=== PATIENT | female | born 1980 | race American Indian/Alaskan Native ===

== ENCOUNTER 2021-06-14 10:44 | Emergency (ER) | payer SELFPAY ==
[2021-06-14 11:13] VITALS: BP 153/91
[2021-06-14] MEDS ORDERED: HYDROcodone/ACETAMINOPHEN 10-325MG TAB PO ONE (11:26)
--- NOTE | 2021-06-14 11:56 | Vascular Lab Report ---
VL venous duplex LE RT INDICATION / CLINICAL INFORMATION: right leg pain. TECHNIQUE: Duplex doppler imaging was performed using venous compression and other maneuvers. COMPARISON: None available. FINDINGS: No venous thrombosis is identified within the visualized extremity vasculature. ADDITIONAL FINDINGS: None. IMPRESSION: 1. No sonographic evidence for DVT in the visualized right lower extremity vasculature. Signer Name: Claude Hussein MD Signed: 06/14/2021 11:52 AM Workstation Name: [id number]
--- NOTE | 2021-06-14 12:04 | Emergency Department Report ---
ED Lower Extremity HPI - General Chief Complaint: Extremity Injury, Lower Stated Complaint: R FOOT/LEG PAIN Time Seen by Provider: 06/14/21 11:17 Source: patient Mode of arrival: Ambulatory Limitations: No Limitations - History of Present Illness Initial Comments: This is a 41-year-old female nontoxic, well nourished in appearance, no acute signs of distress presents to the ED with c/o of right calf pain 3 days. Patient denies any injuries or trauma. Patient denies any numbness, tingling, fever, chills, nausea, vomiting, chest pain, shortness of breath, headache, stiff neck. Patient denies any joint swelling or joint redness. Patient denies decreased range of motion or abnormal gait. Pain worse with palpation. Patient stated has allergies to sulfamethoxaole and trimethroprim. Denies taking oral contraceptives, recent travels or long car rides. Denies recent hospitalizations. MD Complaint: leg injury -: days(s) Injury: Leg: Right Severity: mild Severity scale (0 -10): 8 Improves With: rest Worsens With: palpation Associated Symptoms: ambulatory. denies: snap/pop sensation, swelling, numbness, tingling, unable to bear weight, able to partially bear weight - Related Data Previous Rx's Medication Instructions Recorded Last Taken Type Cyclobenzaprine [Flexeril] 10 mg PO QHS PRN #10 tablet 06/14/21 Unknown Rx Naproxen 500 mg PO Q12H PRN #12 tablet 06/14/21 Unknown Rx Allergies Allergy/AdvReac Type Severity Reaction Status Date / Time sulfamethoxazole Allergy Angioedema Verified 06/14/21 11:10 [From Bactrim] trimethoprim [From Bactrim] Allergy Angioedema Verified 06/14/21 11:10 ED Review of Systems ROS: Stated complaint: R FOOT/LEG PAIN Other details as noted in HPI Comment: All other systems reviewed and negative Constitutional: denies: chills, fever Eyes: denies: eye pain, eye discharge, vision change ENT: denies: ear pain, throat pain Respiratory: denies: cough, shortness of breath, wheezing Cardiovascular: denies: chest pain, palpitations Endocrine: no symptoms reported Gastrointestinal: denies: abdominal pain, nausea, diarrhea Genitourinary: denies: urgency, dysuria, discharge Musculoskeletal: denies: back pain, joint swelling, arthralgia Skin: denies: rash, lesions Neurological: denies: headache, weakness, paresthesias Psychiatric: denies: anxiety, depression Hematological/Lymphatic: denies: easy bleeding, easy bruising ED Past Medical Hx - Past Medical History Hx Asthma: Yes - Medications Home Medications: Home Medications Medication Instructions Recorded Confirmed Last Taken Type Cyclobenzaprine [Flexeril] 10 mg PO QHS PRN #10 tablet 06/14/21 Unknown Rx Naproxen 500 mg PO Q12H PRN #12 tablet 06/14/21 Unknown Rx ED Physical Exam - General Limitations: No Limitations General appearance: alert, in no apparent distress - Head Head exam: Present: atraumatic, normocephalic - Eye Eye exam: Present: normal appearance - Neck Neck exam: Present: normal inspection, full ROM. Absent: lymphadenopathy - Respiratory Respiratory exam: Absent: respiratory distress - Cardiovascular Cardiovascular Exam: Present: regular rate - Extremities Exam Extremities exam: Present: normal inspection, full ROM, tenderness, normal capillary refill, calf tenderness. Absent: pedal edema, joint swelling - Expanded Lower Extremity Exam Right Hip exam: Present: normal inspection, full ROM. Absent: tenderness, swelling Upper Leg exam: Present: normal inspection, full ROM. Absent: tenderness, swe lling Knee exam: Present: normal inspection, full ROM. Absent: tenderness, swelling Lower Leg exam: Present: normal inspection, full ROM, tenderness. Absent: swelling, abrasion, laceration, ecchymosis, deformity, crepidus, dislocation, erythema, palpable cord, Fermin's sign Ankle exam: Present: normal inspection, full ROM. Absent: tenderness, swelling Foot/Toe exam: Present: normal inspection, full ROM. Absent: tenderness, swelling Neuro vascular tendon exam: Present: no vascular compromise. Absent: pulse deficit, abnormal cap refill Gait: Positive: observed and normal 1 - Pain here - Back Exam Back exam: Present: normal inspection, full ROM. Absent: tenderness, CVA tenderness (R), CVA tenderness (L), muscle spasm, paraspinal tenderness, vertebral tenderness, rash noted - Neurological Exam Neurological exam: Present: alert, oriented X3, normal gait - Psychiatric Psychiatric exam: Present: normal affect, normal mood - Skin Skin exam: Present: warm, dry, intact, normal color. Absent: rash ED Course Vital Signs 06/14/21 11:11 Temperature 98.6 F Pulse Rate 98 H Respiratory 20 Rate Blood Pressure 153/91 [Right] O2 Sat by Pulse 100 Oximetry - Reevaluation(s) Reevaluation #1: 06/14/21 12:04 Patient is speaking in full sentences with no signs of distress noted. ED Lower Extremity MDM - Lab Data Result diagrams: 06/14/21 13:10 06/14/21 13:10 Lab Results 06/14/21 06/14/21 06/14/21 Range/Units 13:10 13:10 13:10 WBC 5.9 (4.5-11.0) K/mm3 RBC 4.77 (3.65-5.03) M/mm3 Hgb 10.1 (10.1-14.3) gm/dl Hct 31.0 (30.3-42.9) % MCV 65 L (79-97) fl MCH 21 L (28-32) pg MCHC 33 (30-34) % RDW 19.5 H (13.2-15.2) % Plt Count 285 (140-440) K/mm3 Lymph % (Auto) 25.9 (13.4-35.0) % Ceiba % (Auto) 10.5 H (0.0-7.3) % Eos % (Auto) 1.2 (0.0-4.3) % Baso % (Auto) 0.3 (0.0-1.8) % Lymph # (Auto) 1.5 (1.2-5.4) K/mm3 Ceiba # (Auto) 0.6 (0.0-0.8) K/mm3 Eos # (Auto) 0.1 (0.0-0.4) K/mm3 Baso # (Auto) 0.0 (0.0-0.1) K/mm3 Seg Neutrophils % 62.1 (40.0-70.0) % Seg Neutrophils # 3.7 (1.8-7.7) K/mm3 Sodium 140 (137-145) mmol/L Potassium 3.9 (3.6-5.0) mmol/L Chloride 104.8 (98-107) mmol/L Carbon Dioxide 22 (22-30) mmol/L Anion Gap 17 mmol/L BUN 8 (7-17) mg/dL Creatinine 0.6 (0.6-1.2) mg/dL Estimated GFR > 60 ml/min BUN/Creatinine Ratio 13 % Glucose 91 (65-100) mg/dL Calcium 8.6 (8.4-10.2) mg/dL Total Bilirubin 0.70 (0.1-1.2) mg/dL AST 11 (5-40) units/L ALT 6 L (7-56) units/L Alkaline Phosphatase 71 (35-129) units/L Total Creatine Kinase (30-135) units/L Total Protein 7.5 (6.3-8.2) g/dL Albumin 3.7 L (3.9-5) g/dL Albumin/Globulin Ratio 1.0 % HCG, Qual Negative (Negative) 06/14/21 Range/Units 13:10 WBC (4.5-11.0) K/mm3 RBC (3.65-5.03) M/mm3 Hgb (10.1-14.3) gm/dl Hct (30.3-42.9) % MCV (79-97) fl MCH (28-32) pg MCHC (30-34) % RDW (13.2-15.2) % Plt Count (140-440) K/mm3 Lymph % (Auto) (13.4-35.0) % Ceiba % (Auto) (0.0-7.3) % Eos % (Auto) (0.0-4.3) % Baso % (Auto) (0.0-1.8) % Lymph # (Auto) (1.2-5.4) K/mm3 Ceiba # (Auto) (0.0-0.8) K/mm3 Eos # (Auto) (0.0-0.4) K/mm3 Baso # (Auto) (0.0-0.1) K/mm3 Seg Neutrophils % (40.0-70.0) % Seg Neutrophils # (1.8-7.7) K/mm3 Sodium (137-145) mmol/L Potassium (3.6-5.0) mmol/L Chloride (98-107) mmol/L Carbon Dioxide (22-30) mmol/L Anion Gap mmol/L BUN (7-17) mg/dL Creatinine (0.6-1.2) mg/dL Estimated GFR ml/min BUN/Creatinine Ratio % Glucose (65-100) mg/dL Calcium (8.4-10.2) mg/dL Total Bilirubin (0.1-1.2) mg/dL AST (5-40) units/L ALT (7-56) units/L Alkaline Phosphatase (35-129) units/L Total Creatine Kinase 169 H (30-135) units/L Total Protein (6.3-8.2) g/dL Albumin (3.9-5) g/dL Albumin/Globulin Ratio % HCG, Qual (Negative) - Radiology Data [facility] [address] [place] [address] Vascular Lab Report Signed Patient: NIK ROMANO MR#: [id number] : 1980 Acct:[id number] Age/Sex: 41 / F ADM Date: 06/14/21 Loc: ED Attending Dr: Ordering Physician: ALEXANDER KNIGHT NP Date of Service: 06/14/21 Procedure(s): VL venous duplex LE RT Accession Number(s): [id number] cc: ALEXANDER KNIGHT NP VL venous duplex LE RT INDICATION / CLINICAL INFORMATION: right leg pain. TECHNIQUE: Duplex doppler imaging was performed using venous compression and other maneuvers. COMPARISON: None available. FINDINGS: No venous thrombosis is identified within the visualized extremity vasculature. ADDITIONAL FINDINGS: None. IMPRESSION: 1. No sonographic evidence for DVT in the visualized right lower extremity vasculature. Signer Name: Claude Hussein MD Signed: 06/14/2021 11:52 AM Workstation Name: [id number] Transcribed By: CS Dictated By: Claude Hussein MD Electronically Authenticated By: Claude Hussein MD Signed Date/Time: 06/14/21 1152 DD/ 1151 TD/TT: - Medical Decision Making This is a 41-year-old female that presents with right leg strain. Patient is stable and was examined by me. Patient is notified of the lab results and Doppler ultrasound results with no questions noted by the patient. I referred patient to an orthopedic doctor for further evaluation. X-ray has been obtained and dictated by the radiologist. Patient is notified of the x-ray report with noted by the patient. Patient does have normal gait with some tenderness and no joint swelling. No ecchymosis. no joint redness or swelling. Not warm to touch. No signs of cellulites present. Patient was instructed to RICE therapy. Patient is discharged with Motrin. At time of discharge, the patient does not seem toxic or ill in appearance. No acute signs of distress noted. Patient agrees to discharge treatment plan of care. No further questions noted by the patient. Critical care attestation.: If time is entered above; I have spent that time in minutes in the direct care of this critically ill patient, excluding procedure time. ED Disposition Clinical Impression: Muscle strain of right lower leg Qualifiers: Encounter type: initial encounter Qualified Code(s): S86.911A - Strain of unspecified muscle(s) and tendon(s) at lower leg level, right leg, initial encounter Disposition: HOME / SELF CARE / HOMELESS Is pt being admited?: No Does the pt Need Aspirin: No Condition: Stable Instructions: Muscle Strain, Qpyl-da-[id number], Cyclobenzaprine tablets Additional Instructions: Follow-up with a primary care doctor in 3-5 days or if symptoms worsen and continue return to emergency room as soon as possible. Take naproxen and Flexeril as prescribed. Do not operate heavy machinery while taking Flexeril due to sedation Prescriptions: Cyclobenzaprine [Flexeril] 10 mg PO QHS PRN #10 tablet PRN Reason: Muscle Spasm Naproxen 500 mg PO Q12H PRN #12 tablet PRN Reason: Pain , Severe (7-10) Referrals: PRIMARY MD AILYN [Referring] - 3-5 Days ABRAM TOLBERT MD [Staff Physician] - 3-5 Days Forms: Work/School Release Form(ED) Time of Disposition: 14:22
[2021-06-14 13:20] LABS: Basophils % (Auto) 0.3 % (0.0-1.8); Eosinophils # (Auto) 0.1 K/mm3 (0.0-0.4); Eosinophils % (Auto) 1.2 % (0.0-4.3); Hemoglobin 10.1 gm/dl (10.1-14.3); Lymphocytes # (Auto) 1.5 K/mm3 (1.2-5.4); Lymphocytes % (Auto) 25.9 % (13.4-35.0); Mean Corpuscular HGB Conc 33 % (30-34); Monocytes # (Auto) 0.6 K/mm3 (0.0-0.8); Monocytes % (Auto) 10.5 % (0.0-7.3); Platelet Count 285 K/mm3 (140-440); Red Blood Count 4.77 M/mm3 (3.65-5.03); Red Cell Distribution Width 19.5 % (13.2-15.2)
[2021-06-14 13:54] LABS: Mean Corpuscular Volume 65 fl (79-97)
[2021-06-14 13:56] LABS: Alanine Aminotransferase 6 units/L (7-56); Albumin 3.7 g/dL (3.9-5); Blood Urea Nitrogen 8 mg/dL (7-17); Calcium 8.6 mg/dL (8.4-10.2); Hemolysis Index 0
[2021-06-14 14:19] LABS: BUN/Creatinine Ratio 13
== END 2021-06-14 14:35 | disposition home or self-care (01) ==
LOC: ED 10:44
DX: S86.911A Strain of unspecified muscle(s) and tendon(s) at lower leg level, right leg, initial encounter (principal); J45.909 Unspecified asthma, uncomplicated; Z79.899 Other long term (current) drug therapy; X58.XXXA Exposure to other specified factors, initial encounter; Y93.89 Activity, other specified; Y92.89 Other specified places as the place of occurrence of the external cause; Y99.8 Other external cause status
CPT/HCPCS: 36415; 80053; 82550; 84703; 85025; 99283; 99284

== ENCOUNTER 2021-07-24 17:46 | Emergency (ER) | payer SELFPAY ==
--- NOTE | 2021-07-24 20:49 | Emergency Department Report ---
- General Chief Complaint: Upper Respiratory Infection Stated Complaint: COUGHING/SOB/CHEST PAIN/HEADACHE Time Seen by Provider: 07/24/21 20:22 Source: patient Mode of arrival: Ambulatory Limitations: No Limitations - History of Present Illness Initial Comments: 41-year-old -[place] female with medical history of asthma [facility] emerge department planing of cough congestion and coryza over the past few days resulting in asthma flareups not quite responsive to her inhaler resulting in some wheezing-like sensations to her chest. Reports no hemoptysis no hematemesis no fever chills sweats. No nausea, no vomiting, no headache, no hemoptysis no hematemesis hematochezia MD Complaint: cough, rhinorrhea, nasal congestion -: days(s) Consistency: constant Improves With: nothing Associated Symptoms: rhinorrhea, nasal congestion, cough. denies: shortness of breath, abdominal pain, nausea, diarrhea, confusion, right sweats, weight loss, epistaxis, hoarseness - Related Data Previous Rx's Medication Instructions Recorded Last Taken Type Cyclobenzaprine [Flexeril] 10 mg PO QHS PRN #10 tablet 06/14/21 Unknown Rx Naproxen 500 mg PO Q12H PRN #12 tablet 06/14/21 Unknown Rx Albuterol Mdi (or & Nicu Only) 2 puff IH QID PRN #1 inhalation 07/24/21 Unknown Rx [ProAir HFA Inhaler] Benzonatate [Tessalon Perles] 100 mg PO Q8HR #20 capsule 07/24/21 Unknown Rx Montelukast [Singulair] 10 mg PO QPM #14 tablet 07/24/21 Unknown Rx predniSONE [Deltasone] 50 mg PO QDAY #5 tab 07/24/21 Unknown Rx Allergies Allergy/AdvReac Type Severity Reaction Status Date / Time sulfamethoxazole Allergy Angioedema Verified 06/14/21 11:10 [From Bactrim] trimethoprim [From Bactrim] Allergy Angioedema Verified 06/14/21 11:10 ED Review of Systems ROS: Stated complaint: COUGHING/SOB/CHEST PAIN/HEADACHE Other details as noted in HPI ED Past Medical Hx - Past Medical History Previous Medical History?: Yes Hx Asthma: Yes - Surgical History Past Surgical History?: No - Medications Home Medications: Home Medications Medication Instructions Recorded Confirmed Last Taken Type Cyclobenzaprine [Flexeril] 10 mg PO QHS PRN #10 tablet 06/14/21 Unknown Rx Naproxen 500 mg PO Q12H PRN #12 tablet 06/14/21 Unknown Rx Albuterol Mdi (or & Nicu Only) 2 puff IH QID PRN #1 inhalation 07/24/21 Unknown Rx [ProAir HFA Inhaler] Benzonatate [Tessalon Perles] 100 mg PO Q8HR #20 capsule 07/24/21 Unknown Rx Montelukast [Singulair] 10 mg PO QPM #14 tablet 07/24/21 Unknown Rx predniSONE [Deltasone] 50 mg PO QDAY #5 tab 07/24/21 Unknown Rx ED Physical Exam - General Limitations: No Limitations ED Course Vital Signs 07/24/21 20:13 Temperature 98.2 F Pulse Rate 84 Respiratory 16 Rate Blood Pressure 148/91 [Left] O2 Sat by Pulse 100 Oximetry Critical care attestation.: If time is entered above; I have spent that time in minutes in the direct care of this critically ill patient, excluding procedure time. ED Disposition Clinical Impression: URI (upper respiratory infection), Cough Disposition: HOME / SELF CARE / HOMELESS Is pt being admited?: No Does the pt Need Aspirin: No Condition: Stable Instructions: Cough, Adult, [id number], Upper Respiratory Infection, Adult, Cool Mist Vaporizer, Cough, Adult Prescriptions: predniSONE [Deltasone] 50 mg PO QDAY #5 tab Albuterol Mdi (or & Nicu Only) [ProAir HFA Inhaler] 2 puff IH QID PRN #1 inhalat ion PRN Reason: Shortness Of Breath Montelukast [Singulair] 10 mg PO QPM #14 tablet Benzonatate [Tessalon Perles] 100 mg PO Q8HR #20 capsule Referrals: [facility] [Provider Group] - 3-5 Days ABRAM TOLBERT MD [Staff Physician] - 3-5 Days
[2021-07-24 21:19] VITALS: BP 144/69
== END 2021-07-24 21:22 | disposition home or self-care (01) ==
LOC: ED 17:46
DX: J06.9 Acute upper respiratory infection, unspecified (principal)
CPT/HCPCS: 99282

== ENCOUNTER → 2021-09-11 | Emergency (ER) | payer SELFPAY | END | disposition left against medical advice (07) | LOC: ED 12:13 | DX: J02.9 Acute pharyngitis, unspecified (principal); Z53.21 Procedure and treatment not carried out due to patient leaving prior to being seen by health care provider ==

== ENCOUNTER 2021-09-12 07:09 | Emergency (ER) | payer SELFPAY ==
--- NOTE | 2021-09-12 08:29 | Emergency Department Report ---
- General Chief Complaint: Upper Respiratory Infection Stated Complaint: FEVER/CANDELARIA/COUGH Time Seen by Provider: 09/12/21 08:06 Source: patient Mode of arrival: Ambulatory Limitations: No Limitations - History of Present Illness Initial Comments: Patient presents with acute URI. This includes cough congestion. She has had no significant trouble breathing. There have been subjective fevers and chills. Patient denies vomiting or diarrhea. She not been feeling well. She did report muscle aches and body aches. Because of her symptoms, she came here. There is no known exposure to coronavirus. She has had no history of recent travel or trauma. She has not been on antibiotics lately. - Related Data Previous Rx's Medication Instructions Recorded Last Taken Type Cyclobenzaprine [Flexeril] 10 mg PO QHS PRN #10 tablet 06/14/21 Unknown Rx Naproxen 500 mg PO Q12H PRN #12 tablet 06/14/21 Unknown Rx Montelukast [Singulair] 10 mg PO QPM #14 tablet 07/24/21 Unknown Rx Albuterol Mdi (or & Nicu Only) 2 puff IH QID PRN #1 inhalation 09/12/21 Unknown Rx [ProAir HFA Inhaler] Benzonatate [Tessalon Perles] 100 mg PO Q8HR #20 capsule 09/12/21 Unknown Rx predniSONE [Deltasone] 50 mg PO QDAY #5 tab 09/12/21 Unknown Rx Allergies Allergy/AdvReac Type Severity Reaction Status Date / Time sulfamethoxazole Allergy Angioedema Verified 06/14/21 11:10 [From Bactrim] trimethoprim [From Bactrim] Allergy Angioedema Verified 06/14/21 11:10 ED Review of Systems ROS: Stated complaint: FEVER/CANDELARIA/COUGH Other details as noted in HPI Comment: All other systems reviewed and negative Constitutional: fever Eyes: denies: eye pain ENT: denies: ear pain Respiratory: denies: shortness of breath Cardiovascular: denies: chest pain Endocrine: denies: unexplained weight loss Gastrointestinal: denies: hematemesis Genitourinary: denies: hematuria Musculoskeletal: as per HPI. denies: joint swelling Skin: denies: rash Hematological/Lymphatic: denies: easy bruising ED Past Medical Hx - Past Medical History Hx Asthma: Yes - Family History Family history: asthma - Medications Home Medications: Home Medications Medication Instructions Recorded Confirmed Last Taken Type Cyclobenzaprine [Flexeril] 10 mg PO QHS PRN #10 tablet 06/14/21 Unknown Rx Naproxen 500 mg PO Q12H PRN #12 tablet 06/14/21 Unknown Rx Montelukast [Singulair] 10 mg PO QPM #14 tablet 07/24/21 Unknown Rx Albuterol Mdi (or & Nicu Only) 2 puff IH QID PRN #1 inhalation 09/12/21 Unknown Rx [ProAir HFA Inhaler] Benzonatate [Tessalon Perles] 100 mg PO Q8HR #20 capsule 09/12/21 Unknown Rx predniSONE [Deltasone] 50 mg PO QDAY #5 tab 09/12/21 Unknown Rx ED Physical Exam - General Limitations: No Limitations, Other ( Pulse ox noted and normal) General appearance: alert, in no apparent distress - Head Head exam: Present: atraumatic, normocephalic - Eye Eye exam: Present: normal appearance, EOMI - ENT ENT exam: Present: normal orophraynx, normal external ear exam - Neck Neck exam: Present: normal inspection. Absent: meningismus - Respiratory Respiratory exam: Present: normal lung sounds bilaterally. Absent: respiratory distress - Cardiovascular Cardiovascular Exam: Present: regular rate, normal rhythm - GI/Abdominal GI/Abdominal exam: Present: soft. Absent: tenderness - Extremities Exam Extremities exam: Present: normal capillary refill - Back Exam Back exam: Absent: CVA tenderness (R), CVA tenderness (L) - Neurological Exam Neurological exam: Present: alert, oriented X3, CN II-XII intact, normal gait - Psychiatric Psychiatric exam: Present: normal affect, normal mood - Skin Skin exam: Present: warm, dry ED Course Vital Signs 09/12/21 09/12/21 07:13 08:43 Temperature 98.7 F Pulse Rate 88 Respiratory 16 15 Rate Blood Pressure 139/92 Blood Pressure 118/78 [Right] O2 Sat by Pulse 99 99 Oximetry - Reevaluation(s) Reevaluation #1: 09/12/21 15:58 patient was discharged ED Medical Decision Making - Medical Decision Making patient presented with upper respiratory symptoms. Patient does not appear to be septic or toxic. There is no evidence of respiratory failure. There are no adventitial breath sounds to suggest pneumonia. This could be coronavirus and the patient has been cautioned against this. Patient can certainly undergo outpatient testing. Critical Care Time: No Critical care attestation.: If time is entered above; I have spent that time in minutes in the direct care of this critically ill patient, excluding procedure time. ED Disposition Clinical Impression: Acute URI Disposition: HOME / SELF CARE / HOMELESS Is pt being admited?: No Condition: Stable Instructions: Viral Respiratory Infection, [id number] Additional Instructions: Push fluids. Return for problems. Have outpatient Covid testing done. Follow- up with your regular doctor for recheck and further management. Continue home medication. Alternate Tylenol and ibuprofen for fever. Prescriptions: predniSONE [Deltasone] 50 mg PO QDAY #5 tab Albuterol Mdi (or & Nicu Only) [ProAir HFA Inhaler] 2 puff IH QID PRN #1 inhalation PRN Reason: Shortness Of Breath Benzonatate [Tessalon Perles] 100 mg PO Q8HR #20 capsule Referrals: PRIMARY CARE, [Primary Care Provider] - 3-5 Days Forms: Work/School Release Form(ED)
[2021-09-12 08:44] VITALS: BP 118/78
== END 2021-09-12 09:44 | disposition home or self-care (01) ==
LOC: ED 07:09
DX: J06.9 Acute upper respiratory infection, unspecified (principal); J45.909 Unspecified asthma, uncomplicated
CPT/HCPCS: 99282